=== PATIENT | male | born 1965 | race Caucasian/White ===

== ENCOUNTER 2019-01-15 14:32 | Emergency (ER) | payer OTHER, BC ==
--- NOTE | 2019-01-15 15:51 | EDM.PDOC ---
ED HPI GENERAL MEDICAL PROBLEM - General Chief Complaint: ENT Problem Stated Complaint: FB IN EYE Time Seen by Provider: 01/15/19 14:38 Source of Information: Reports: Patient History Limitations: Reports: No Limitations - History of Present Illness INITIAL COMMENTS - FREE TEXT/NARRATIVE: 53 yo M comes in today with complaints of possible foreign body (metal) in the R eye. He states he was at work yesterday, he works at [employer], and his coworker was grinding a lid of a metal bin with stone and he felt the metal go into his eye. He has had this before, back in 2013, and states he had similar symptoms. He's currently in 7/10 pain, sensitive to light, watery eyes. He denies STEELE, blurry or changed vision. No other concerns at this time. Right Eye Pain Score (Numeric/FACES): 7 - Related Data Allergies Allergy/AdvReac Type Severity Reaction Status Date / Time No Known Allergies Allergy Verified 01/15/19 14:45 Home Meds: Home Meds Ciprofloxacin [Ciloxan 0.3% Ophth Soln] 5 ml EYERT Q4H #1 bottle 01/15/19 [Rx] Past Medical History - Past Health History Medical/Surgical History: Denies Medical/Surgical History Social & Family History - Tobacco Use Years of Tobacco use: 30 Packs/Tins Daily: 1 - Caffeine Use Caffeine Use: Reports: Soda - Recreational Drug Use Recreational Drug Use: No ED ROS ENT - Review of Systems Review Of Systems: ROS reveals no pertinent complaints other than HPI. ED EXAM, ENT - Physical Exam Exam: See Below Exam Limited By: No Limitations General Appearance: Alert, WD/WN, Mild Distress Eye Exam: Right Eye: Other (injection present), Left Eye: Normal Inspection, Bilateral Eye: EOMI, PERRL Ears: Normal External Exam, Hearing Grossly Normal Nose: Normal Inspection, Normal Mucousa, No Blood Mouth/Throat: Normal Inspection, Normal Gums, Normal Lips, Normal Teeth Head: Atraumatic, Normocephalic Neck: Normal Inspection, Supple, Non-Tender, Full Range of Motion Neurological: Alert, Oriented, CN II-XII Intact, Normal Cognition Psychiatric: Normal Affect, Normal Mood Skin: Warm, Dry, Intact, Normal Color, No Rash ED ENT PROCEDURES - Foreign Body Removal Indication:: FB in R eye Consent Obtained: Patient Performing Doctor:: Kuylen,Sav Foreign Body Other Location Comment:: 7'oclock on iris of R eye Anesthesia Type: Local (Proparacaine) Complications: No Course - Vital Signs Last Recorded V/S: Last Vital Signs Temp 98.0 F 01/15/19 14:39 Pulse 97 01/15/19 14:39 Resp 15 01/15/19 14:39 BP 146/100 H 01/15/19 14:39 Pulse Ox 100 01/15/19 14:39 - Re-Assessments/Exams Free Text/Narrative Re-Assessment/Exam: 01/15/19 15:10 Slit lamp does show foreign body around 7'oclock on iris of R eye. Looks to be possible metal, rust ring seen. Departure - Departure Time of Disposition: 16:13 Disposition: Home, Self-Care 01 Condition: Good Clinical Impression: Foreign body of right eye - Discharge Information *PRESCRIPTION DRUG MONITORING PROGRAM REVIEWED*: Not Applicable *COPY OF PRESCRIPTION DRUG MONITORING REPORT IN PATIENT SHIRAZ: Not Applicable Prescriptions: Ciprofloxacin [Ciloxan 0.3% Ophth Soln] 5 ml EYERT Q4H #1 bottle Instructions: Eye Foreign Body, [id number] Referrals: PCP,None [Primary Care Provider] - Forms: ED Department Discharge Additional Instructions: You were seen in the ED for foreign body in your right eye, likely metal from work. We took the metal out and will send you home with antibiotic drops to prevent infection. Use 1 drop every 4 hours while awake for 1 week. Recommend follow up with primary care doctor and supervisor heavy equipment. Please return to ED if new or worsening symptoms.
== END 2019-01-15 16:31 | disposition home or self-care (01) ==
LOC: JD.ED 14:32
DX: T15.91XA Foreign body on external eye, part unspecified, right eye, initial encounter (principal); W45.8XXA Other foreign body or object entering through skin, initial encounter; F17.210 Nicotine dependence, cigarettes, uncomplicated
CPT/HCPCS: 65205; 65222; 99282; 99283

== ENCOUNTER 2022-07-04 10:52 | Emergency (ER) | payer BC, OTHER ==
[2022-07-04] MEDS ORDERED: Midazolam 1 MG/ML 2 ML SDV ONE ×2 (14:01→14:49)
[2022-07-04] MEDS ORDERED: fentaNYL 100 MCG/2 ML SDV ONE (14:01)
[2022-07-04] MEDS ORDERED: Propofol 200 MG/20 ML SDV ONE (14:02)
[2022-07-04] MEDS ORDERED: Ketorolac 30 MG/ML SDV IVPUSH ONE (15:25)
== END 2022-07-04 15:50 | disposition home or self-care (01) ==
LOC: JD.ED 10:52
DX: S52.591A Other fractures of lower end of right radius, initial encounter for closed fracture (principal); W18.30XA Fall on same level, unspecified, initial encounter; Y99.0 Civilian activity done for income or pay
CPT/HCPCS: 73100; 73110; 96374; 99283; J1885; J2250; J2704; J3010